=== PATIENT | female | born 1980 | race Caucasian/White ===

== ENCOUNTER 2016-09-15 07:20 | Emergency (ER) | payer OTHER ==
--- NOTE | 2016-09-15 07:37 | ED Physician Documentation ---
General Adult - HISTORIAN Historian: patient - HPI Stated Complaint: L ankle sprain Chief Complaint: General Adult Onset: days ago (1) Timing: still present Severity: moderate Further Comments: yes (Pt is a 35 yo female who roller her L ankle yesterday. Pain has persisted.) - ROS CONST: no problems EYES/ENT: none CVS/RESP: none GI/: none MS/SKIN/LYMPH: other (L ankle pain) - PAST HX Past History: other (C-sec; orthopedic surgery) Allergies/Adverse Reactions: Allergies Allergy/AdvReac Type Severity Reaction Status Date / Time No Known Allergies Allergy Verified 09/15/16 07:32 Home Medications: Ambulatory Orders Medication Instructions Recorded NK [NK] 09/15/16 - SOCIAL HX Smoking History: non-smoker - FAMILY HX Family History: No - REVIEWED ASSESSMENTS Nursing Assessment Reviewed: Yes Vitals Reviewed: Yes Progress - Progress Progress: Air Splint Crutches Ibuprofen as directed. - EKG/XRAY/CT XRAY: ankle (L ankle: wnl) General Adult Physical Exam - PHYSICAL EXAM GENERAL APPEARANCE: mild distress EENT: eye inspection normal NECK: normal inspection, supple RESPIRATORY: no resp distress, breath sounds normal CVS: reg rate & rhythm, heart sounds normal BACK: normal inspection SKIN: warm/dry, normal color EXTREMITIES: other (L ankle tenderness over the lateral malleolus; no swelling; FROM.) NEURO: oriented X3 Discharge Clincal Impression: Ankle sprain Qualifiers: Encounter type: initial encounter Involved ligament of ankle: unspecified ligament Laterality: left Qualified Code(s): S93.402A - Sprain of unspecified ligament of left ankle, initial encounter Referrals: Primary Doctor,No [Primary Care Provider] - 2 Days Home Medications: Ambulatory Orders NK [NK] 09/15/16 Condition: Good Disposition: HOME, SELF-CARE Decision to Admit: NO Decision Time: 08:33
[2016-09-15 07:38] VITALS: BP 115/71
--- NOTE | 2016-09-15 09:43 | Diagnostic Imaging Report ---
[facility] [address] [facility].[address] [id number] Report Submission Date: Sep 15, 2016 8:17:32 AM DRAINLAYER Patient Study Name: BROOKE ACEVEDO Date: Sep 15, 2016 7:44:01 AM DRAINLAYER Modality Type: CR Gender: F Description: LOWER EXTREMITY : 82 Institution: [facility] Physician: GERARDO CHONG Left ankle 3 views History: Pain after injury Findings: The left ankle is unremarkable without fracture, dislocation, arthropathy, or focal bone lesion. Electronically signed on Sep 15, 2016 8:17:32 AM DRAINLAYER by: Lit BLANK
== END 2016-09-15 08:16 | disposition home or self-care (01) ==
LOC: ED 07:20
DX: S93.402A Sprain of unspecified ligament of left ankle, initial encounter (principal); W19.XXXA Unspecified fall, initial encounter; Y93.9 Activity, unspecified; Y99.9 Unspecified external cause status
CPT/HCPCS: 73610; 99283; L4350; S1016